=== PATIENT | female | born 1995 | race Caucasian/White ===

== ENCOUNTER 2016-06-15 20:11 | Emergency (ER) | payer MEDICAID ==
[2016-06-15 20:14] VITALS: TEMP 98.5
[2016-06-15 21:04] VITALS: BMI 16.5
[2016-06-15 21:18] LABS: LEUKOCYTES/URINE 2+ (NEGATIVE); NITRITE/URINE NEG (NEGATIVE); RBC/URINE 40-50 (0-5); URINE OCCULT BLOOD 3+ (NEG/TRACE); WBC/URINE TNTC (0-5)
[2016-06-15 21:47] VITALS: BP 110/72; PULSE 87
--- NOTE | 2016-06-15 22:00 | EDPRACDOC ---
- General Information Chief Complaint: Female Urogenital Problems Stated Complaint: LOWER ABD PAIN, BLOOD IN URINE Time Seen by Provider: 06/15/16 21:51 Information Source: Patient Mode Of Arrival: Car Home Medications: Home Medications Hydrocodone Bit/Acetaminophen [Hydrocodon-Acetaminophen 5-325] 1 tab PO Q6H PRN #10 tab 02/04/16 Ketoprofen 75 mg PO TID #20 capsule 02/04/16 Ciprofloxacin HCl [Cipro] 500 mg PO BID #14 tab 06/15/16 Ibuprofen 400 mg PO Q6H PRN #30 tablet 06/15/16 Phenazopyridine HCl [Pyridium] 100 mg PO TID PRN #6 tablet 06/15/16 Allergies/Adverse Reactions: Allergies Allergy/AdvReac Type Severity Reaction Status Date / Time No Known Allergies Allergy Verified 06/15/16 21:05 - History of Present Illness Onset: 4 DAYS HPI: Pt c/o lower abd pain, hematuria, lower back pain, nausea x 3-4 days. Denies fever, cough, congestion, vaginal bleeding or discharge, rash. Pain Location: Reports: Suprapubic Pain Context: Reports: Spontaneous Pain Severity: Mild Pain Quality: Reports: Aching, Burning Pain Radiation: Reports: Back Last Menstrual Period: 2 WEEKS : No Modifying Factors: improves with: Nothing Female Associated Signs & Symptoms: Reports: Nausea, Dysuria, Hematuria Oral Intake: Normal Urinary Output: Normal ED Past Medical History - History Reviewed Yes Nurses notes reviewed and agree except as marked - Patient Medical History Respiratory History: Reports: Asthma Psychological History: Denies: Depression - Social Medical History Smoking Status: Never smoker ETOH: None Substance Abuse: None EDM Review of Systems - Review of Systems Constitutional: No Symptoms Reported. negative: Fever, Chills, Weakness, Fatigue, Loss of Appetite Ears: No Symptoms Reported. negative: Pain, Hearing Loss, Drainage, Ear Pulling Throat: No Symptoms Reported. negative: Pain, Swelling Nose: No Symptoms Reported. negative: Congestion, Bleeding, Discharge, Injection, Swelling, Deformity, Ecchymosis, Tender, Abrasion, Laceration Mouth: No Symptoms Reported. negative: Pain, Drooling Respiratory: No Symptoms Reported. negative: Cough, Brassy Cough, Barky Cough, Shortness of Breath, Wheezing, Hemoptysis Cardiovascular: No Symptoms Reported. negative: Chest Pain, Palpitations, Syncope, Edema, Orthopnea, PND, Skin Mottling, Cyanosis Gastrointestinal: Nausea, Pain Genitourinary: Dysuria Neurological: No Symptoms Reported. negative: Headache, Dizziness, Seizure, Numbness, Weakness, Speech Difficulty, Gait Difficulty Musculoskeletal: Back Integumentary: No Symptoms Reported. negative: Itching, Rash, Bruising, Wound Allergic/Immunologic: No Symptoms Reported. negative: Hives, Itching Hematologic: No Symptoms Reported. negative: Lymphadenopathy, Easy Bruising, Easy Bleeding Psychiatric: No Symptoms Reported. negative: Anxiety, Depression, Hallucinations, Insomnia, Suicidal - Physical Exam Constitutional: No apparent distress, Alert Oriented to: Time, Person, Place Last recorded Vital Signs: Last Vital Signs Temp 98.5 F 06/15/16 20:13 Pulse 87 06/15/16 21:46 Resp 18 06/15/16 21:46 BP 110/72 06/15/16 21:46 Pulse Ox 97 06/15/16 21:46 Oxygen Pulse Oxygen Saturation 97 O2 Device Room Air Oxygen Flow Rate Fraction of Inspired Oxygen ( FIO2) - HEENT Head: Normal ( normocephalic) Eye Exam: Normal (PERRL, EOMI, Sclera white) Neck: Normal (FROM, trachea at midline) - Respiratory/Cardiovascular Respiratory: Normal - CTA (BBS clear to auscultation without adventitious sounds ) Cardiovascular: Normal (RRR without murmur, gallop or rub) - GI Auscultation: Normal (NABS) Palpation: Normal (Soft,No rebound or guarding, non distended) Tenderness: Mild, Suprapubic - Musculoskeletal Back: Normal (Non-Tender) Extremities: Normal (Normal tone, Pulses 2+ No cyanosis or edema, FROM) - Integumentary Skin: Normal, Warm, Dry Lymphatics: Normal (no adenopathy) - Neurologic Memory Impaired: Normal Motor Function: Normal (Normal tone, Pulses 2+ No cyanosis or edema, FROM) Mood Description: Normal Perception: Normal - Differential Diagnosis Gastroenteritis, UTI, Other (vaginitis, pyelonephritis) - Results Urine Color Yellow 06/15/16 21:06 Urine Clarity Cldy 06/15/16 21:06 Urine pH 6.0 (5.0-8.0) 06/15/16 21:06 Ur Specific [place] 1.015 (1.003-1.035) 06/15/16 21:06 Urine Protein Neg (NEG/TRACE) 06/15/16 21:06 Urine Glucose (UA) Neg (NEGATIVE) 06/15/16 21:06 Urine Ketones Neg (NEGATIVE) 06/15/16 21:06 Urine Occult Blood 3+ (NEG/TRACE) H 06/15/16 21:06 Urine Nitrite Neg (NEGATIVE) 06/15/16 21:06 Urine Bilirubin Neg (NEGATIVE) 06/15/16 21:06 Urine Urobilinogen <2.0 MG/DL (0-1) 06/15/16 21:06 Ur Leukocyte Esterase 2+ (NEGATIVE) H 06/15/16 21:06 Urine RBC 40-50 (0-5) H 06/15/16 21:06 Urine WBC Tntc (0-5) H 06/15/16 21:06 Urine WBC Clumps Present (NONE) H 06/15/16 21:06 Ur Epithelial Cells 2+ 06/15/16 21:06 Urine Bacteria Few (NEG/FEW) 06/15/16 21:06 Urine Mucus Occ (NEG/OCC) 06/15/16 21:06 Urine Test Neg (NEGATIVE) 06/15/16 21:06 Lab Results 06/15/16 06/15/16 21:06 21:06 Urine Color Yellow Urine Clarity Cldy Urine pH 6.0 Ur Specific [place] 1.015 Urine Protein Neg Urine Glucose (UA) Neg Urine Ketones Neg Urine Occult Blood 3+ H Urine Nitrite Neg Urine Bilirubin Neg Urine Urobilinogen <2.0 Ur Leukocyte Esterase 2+ H Urine RBC 40-50 H Urine WBC Tntc H Urine WBC Clumps Present H Ur Epithelial Cells 2+ Urine Bacteria Few Urine Mucus Occ Urine Test Neg - Additional Information Pt refused pelvic exam, discussed importance of exam and missed dx without test. Pt want to f/u with [facility] for exam Decision Time to Discharge: 22:01 - Departure Disposition: Home Condition: Good Final Diagnosis: UTI (urinary tract infection) Qualifiers: Urinary tract infection type: acute cystitis Hematuria presence: with hematuria Qualified Code(s): N30.01 - Acute cystitis with hematuria Instructions: Urinary Tract Infection in Women (ED), Dysuria Education/Counseling Given To: Patient Education/Counseling Given Regarding: Diagnosis, Treatment, Follow Up Referrals: Angella Romero PA [Primary Care Provider] - One Week Felton Cárdenas MD [Staff Physician] - One Week Prescriptions: New Ciprofloxacin HCl [Cipro] 500 mg PO BID #14 tab Ibuprofen 400 mg PO Q6H PRN #30 tablet PRN Reason: Pain Phenazopyridine HCl [Pyridium] 100 mg PO TID PRN #6 tablet PRN Reason: Dysuria No Action Hydrocodone Bit/Acetaminophen [Hydrocodon-Acetaminophen 5-325] 1 tab PO Q6H PRN #10 tab PRN Reason: Pain Ketoprofen 75 mg PO TID #20 capsule Additional Instructions: Return for worse or different symptoms.
== END 2016-06-15 22:09 | disposition home or self-care (01) ==
LOC: ED 20:11 → EDMC 22:09
DX: N30.01 Acute cystitis with hematuria (principal)
CPT/HCPCS: 81001; 81025; 99283